=== PATIENT | female | born 1995 | race Caucasian/White ===

== ENCOUNTER 2017-01-02 18:10 | Emergency (ER) | payer OTHER ==
[~2017-01-02] VITALS: Ht 152.4 cm; Wt 50.0 kg
[2017-01-02 18:21] VITALS: Ht 152.4 cm; Wt 50.0 kg
[2017-01-02 18:35] VITALS: O2SAT 96
[2017-01-02 20:21] LABS: BUN/CREATININE RATIO 17.4 (10-20); CALCIUM 8.5 mg/dl (8.5-10.1); CREATININE 0.73 mg/dl (0.60-1.20); POTASSIUM 3.5 mmol/L (3.5-5.1)
--- NOTE | 2017-01-03 05:02 | EMERGENCY ROOM VISIT NOTE ---
ED Visit Note First contact with patient: 05:03 s/o from Dr. Calvin. Etoh intoxication. d/c when clinicaly sober. I was asked by RN to reassess patient when clinically sober. She is appropriate and OK for d/c. She will take a cab to her friends home where they are waiting for her.
[2017-01-03 05:15] VITALS: BP 138/95; PULSE 92; O2SAT 99
--- NOTE | 2017-01-03 14:03 | EMERGENCY ROOM VISIT NOTE ---
History Report prepared by [place]: Lionel Gonzalez Under the Supervision of: Dr. Long Thomas M.D. First contact with patient: 18:27 Chief Complaint: ALCOHOL OVERDOSE Stated Complaint: ALCOHOL OVERDOSE History of Present Illness The patient is a 21 year old female who presents to the Emergency Room for evaluation of constant alcohol intoxication beginning shortly prior to arrival. Per friends, the patient drank around 6 shots today. They state that the patient frequently drinks a lot and becomes heavily intoxicated. They state that the patient fell but did not hit her head. The patient's friends state that the patient was needing to be carried. They note that the patient vomited shortly prior to arrival. They state that the patient is prescribed Adderall, and used Adderall today. HPI limited secondary to alcohol intoxication. Her friends note that she has a bruise to her right leg but that is from a week ago. Source of History: friend History Limited By: intoxication (alcohol) Onset: Shortly prior to arrival Quality: other (alcohol intoxication) Timing: constant Associated Symptoms: + vomiting Review of Systems ROS limited secondary to alcohol intoxication. Past Medical & Surgical Unobtainable secondary to alcohol intoxication. Family History Unobtainable secondary to alcohol intoxication. Social History Smoking Status: Never Smoker Occupation Status: student Current/Historical Medications Unable to Obtain Active Prescriptions or Reported Meds Physical Exam Vital Signs Date Time Temp Pulse Resp B/P (MAP) Pulse Ox O2 Delivery O2 Flow Rate FiO2 01/03/17 05:15 92 18 138/95 99 01/03/17 04:31 100/68 98 Room Air 01/03/17 04:15 76 22 01/03/17 04:01 103/68 01/03/17 03:48 106/66 01/03/17 03:45 77 16 01/03/17 03:15 77 18 01/03/17 02:45 81 15 97 01/03/17 02:31 87/46 01/03/17 02:28 87/45 01/03/17 02:15 82 16 96 01/03/17 02:10 82 16 96 01/03/17 02:08 81 01/03/17 01:40 76 17 100 01/03/17 01:10 73 16 97 01/03/17 01:05 96 16 99 01/03/17 01:01 97/50 01/03/17 00:15 85 18 105/72 97 Room Air 01/02/17 23:05 87 8 96 01/02/17 23:00 91 18 107/70 97 Room Air 01/02/17 22:53 93 01/02/17 22:30 84 20 98 01/02/17 22:00 93 23 105/66 100 01/02/17 21:30 107 21 107/75 96 01/02/17 21:23 99 18 103/55 97 Room Air 01/02/17 19:51 108 20 111/70 100 Room Air 01/02/17 19:32 102 01/02/17 18:36 93 25 115/79 96 Room Air 01/02/17 18:35 96 Room Air 01/02/17 18:21 100 12 117/83 96 Room Air Physical Exam Constitutional: Vital signs reviewed. Eyes: Pupils are equal round reactive to light. Conjunctiva are noninjected. ENT: NC/AT. Pharynx is clear without erythema or exudate. Mucous membranes are moist. Neck supple without meningeal signs. No midline tenderness to the cervical spine. Respiratory: Clear to auscultation bilaterally. Breath sounds are equal bilaterally. Cardiovascular: Regular rate and rhythm. No rubs or gallops. GI: Soft, nondistended and nontender. Bowel sounds are present. Musculoskeletal: Old bruise to the posterior right thigh. Integumentary: No cyanosis. Neurological: The patient appears intoxicated. Moves all extremities. Psychiatric: Unable to assess. Medical Decision & Procedures Laboratory Results 01/02/17 19:32 Test 01/02/17 19:32 Anion Gap 11.0 mmol/L (3-11) Est Creatinine Clear Calc Drug Dose 87.6 ml/min Estimated GFR () 136.5 Estimated GFR (Non- 117.7 BUN/Creatinine Ratio 17.4 (10-20) Calcium Level 8.5 mg/dl (8.5-10.1) Ethyl Alcohol mg/dL 351.2 mg/dl (0-3) Laboratory results as reviewed by me. ED Course 1830: The patient was evaluated in room A4B. A complete history and physical exam was performed. 2201: I reassessed the patient. She is awake and alert, but complains of being tired. Medical Decision This is a 21-year-old female presents with altered mental status from presumed alcohol intoxication. I did perform a limited focused review of portions of the patient's old chart on the electronic medical record. The patient has had no prior visits to this hospital. Additional history was obtained from the nurse and the patient's friends due to the patient's condition. Differential diagnosis: Etiologies such as alcohol intoxication, hypoglycemia, electrolyte abnormality, illicit drug use as well as others were considered. ER treatment provided: The patient was placed on a continuous knitter machine and pulse oximetry. Diagnostic studies: I did order and review the patient's lab work including an alcohol level and PRP. Disposition: On reassessment the patient is more awake but still stumbling when she walks. She denies any complaints. The patient will be observed further until she is more sober for discharge. Medication Reconcilliation Current Medication List: was personally reviewed by me Blood Pressure Screening Patient's blood pressure: Normal blood pressure Blood pressure disposition: Did not require urgent referral Impression Primary Impression: Alcohol intoxication Scribe Attestation The scribe's documentation has been prepared under my direct and personally reviewed by me in its entirety. I confirm that the note above accurately reflects all work, treatment, procedures, and medical decision making performed by me. Departure Information Dispostion Still a Patient Prescriptions Unable to Obtain Active Prescriptions or Reported Meds Referrals No Doctor, Assigned (PCP) Forms HOME CARE DOCUMENTATION FORM, IMPORTANT VISIT INFORMATION Patient Instructions ED Alcohol Intoxication, My [facility] Additional Instructions Follow up with [facility]. Avoid drinking alcohol in excess. Do not drink any alcohol for the next 48 hours. Return for any worsening symptoms or if you develop any new symptoms such as severe headache or vomiting. Problem Qualifiers Primary Impression: Alcohol intoxication Complication of substance-induced condition: uncomplicated Qualified Codes: F10.920 - Alcohol use, unspecified with intoxication, uncomplicated
== END 2017-01-03 05:16 | disposition home or self-care (01) ==
LOC: C.EDB 18:12 → C.EDA 01-03 05:16
DX: F10.129 Alcohol abuse with intoxication, unspecified (principal); Y90.8 Blood alcohol level of 240 mg/100 ml or more